=== PATIENT | male | born 1955 | race Caucasian/White ===

== ENCOUNTER → 2020-04-02 | Day surgery (SDC) | payer MEDICARE, OTHER ==
[2020-03-29 10:10] LABS: BASOPHILS % 0.6 % (0.0-1.0); EOSINOPHILS # (AUTO) 0.1 (0.0-0.4); EOSINOPHILS % 1.6 % (0.0-6.0); HEMATOCRIT 44.5 % (38.2-49.6); HEMOGLOBIN 15.2 g/dL (14.0-18.0); LYMPHOCYTES # (AUTO) 1.5 (1.0-3.2); LYMPHOCYTES % 22.3 % (18.0-39.1); MEAN CORPUSCULAR HEMOGLOBIN 31.9 pg (28-32); MEAN CORPUSCULAR HGB CONC 34.2 g/dL (31-35); MEAN CORPUSCULAR VOLUME 93.5 fL (81-99); MONOCYTES # (AUTO) 0.7 (0.2-0.8); MONOCYTES % 10.7 % (4.4-11.3); NEUTROPHILS # (AUTO) 4.3 (2.1-6.9); NEUTROPHILS % 64.4 % (38.7-80.0); PLATELET COUNT 170 x10e3/uL (140-360); RED BLOOD COUNT 4.76 x10e6/uL (4.3-5.7); RED CELL DISTRIBUTION WIDTH 13.1 % (11.7-14.4)
--- NOTE | 2020-03-29 10:39 | Diagnostic Imaging Report ---
EXAMINATION: CHEST 2 VIEWS INDICATION: Preop. Chest pain ^[id number] ^[id number] ^PRE-OP COMPARISON: None FINDINGS: TUBES and LINES: None. LUNGS: Lungs are well inflated. Lungs are clear. There is no evidence of pneumonia or pulmonary edema. PLEURA: No pleural effusion or pneumothorax. HEART AND MEDIASTINUM: The cardiomediastinal silhouette is unremarkable. BONES AND SOFT TISSUES: No acute osseous lesion. Soft tissues are unremarkable. UPPER ABDOMEN: No free air under the diaphragm. IMPRESSION: No acute thoracic abnormality. Signed by: Dr. Mason Shaffer M.D. on 03/29/2020 10:36 AM
[~2020-04-02] MED LIST: ACETAMINOPHEN 1000 MG/100 ML 100 ML IV ONE; BUPIVACAINE 0.25% 30ML SDV INJ ONE; CEFAZOLIN SOD 1 GM/NS 50ML 100 ML IV ONE; DEXAMETHASONE SOD PHOS INJ 4 MG/ML VIAL ONE; FENTANYL CITRATE/PF 100MCG/2 ML INJ ONE; KETOROLAC TROMETHAMINE 30 MG/ML VIAL ONE; LIDOCAINE HCL 2% JELLY 5 ML TUBE ONE; LIDOCAINE HCL 2% LOCAL INJ 5 ML SDV VIAL INJ ONE; MIDAZOLAM HCL 2 MG/2 ML VIAL ONE; ONDANSETRON HCL INJ 2MG/ML 2ML 2 MG/ML VIAL ONE; PROPOFOL IV EMULSION 10 MG/ML 20 ML VIAL ONE; SEVOFLURANE INHAL SOLN 250 ML PEN BTL ONE; TYLENOL325 M2 PO
[2020-04-02 11:25] VITALS: BP 143/92
--- NOTE | 2020-04-02 12:54 | Operative Report ---
DATE OF PROCEDURE: 04/02/2020 SURGEON: Jun Victor MD PREOPERATIVE DIAGNOSIS: Right inguinal hernia. POSTOPERATIVE DIAGNOSIS: Right inguinal hernia. PREOPERATIVE INDICATION: Treat disease, prevent hernia-related complications. PROCEDURES: Open repair of right inguinal hernia (CPT 64781). ANESTHESIA: General. SENIOR COBOL DEVELOPER: Arcadio Denise, surgical 1st events assistant (needed due to complexity of case). FLUIDS: As per anesthesia. EBL: 10 mL. DRAINS: None. COMPLICATIONS: None. SPECIMENS: Omentum. GRAFTS: Medium-sized Bard mesh PerFix plug polypropylene mesh. FINDINGS: Right-sided indirect and direct inguinal hernia. PROCEDURE IN DETAIL: The patient was brought to the operating room, and was intubated under general endotracheal anesthesia. He was sterilely prepped and draped in the usual fashion. A preprocedure pause was performed identifying the patient, use of perioperative antibiotics, intended procedure, and staff surgeon. Of note, a Ruff catheter was placed in order to decompress the bladder. A right-sided iliac fossa incision was made along the length of the skin lines. Dissection was carried through the subcutaneous tissues and a superficial epigastric vessel was identified and ligated in continuity with 3-0 silk suture. We then were able to expose the external oblique aponeurosis. The aponeurosis was cut along the length of its fibers being careful not to injure any neurovascular structures below. I identified ilioinguinal nerve and ligated this with silk suture as this was in the course of our dissection. I then encircled the cord structures with a Sania drain. We identified and dissected out an indirect inguinal hernia, which was consistent with a large portion of omentum. We then reduced it down to the level internal ring and excised part of this and ligated it with silk suture. I then placed a mesh plug through the internal ring and sutured it to the conjoint tendon medially and the shelving edge of the inguinal ligament laterally. Next, I had identified a direct space defect and reduced this. I 1st affixed the defect using 2-0 silk suture via the Bassini repair by approximating the shelving edge of the inguinal ligament as well as the conjoined tendon. We placed a single stitch that way and it helped reduce the defect. Next, I placed a patch over the inguinal floor to cover the direct space as well using the polypropylene patch. It was 1st sutured to the periosteum of the pubic tubercle and then it was sutured along the length of the conjoined tendon as well as the shelving edge of the inguinal ligament using 2-0 Prolene sutures. We then verified hemostasis and irrigated the wound. I closed the external oblique aponeurosis with 3-0 Vicryl suture in a continuous fashion. We closed the Haydee's fascia with an interrupted 3-0 Vicryl suture. The skin was closed with 4-0 Monocryl suture in a subcuticular fashion. Dermabond dressings were applied. 0.25% bupivacaine was used at the incision sites for local anesthesia. The patient tolerated the procedure well. Type of wound was type 1, clean. All surgical sponge, instrument counts were correct. MD DELLA Fatima/MODL /[id number]
== END | disposition home or self-care (01) ==
LOC: OR 06:24
PROVIDERS: ATTEND Surgery
DX: K40.90 Unilateral inguinal hernia, without obstruction or gangrene, not specified as recurrent (principal); K21.9 Gastro-esophageal reflux disease without esophagitis; R06.02 Shortness of breath; Z01.810 Encounter for preprocedural cardiovascular examination; Z01.812 Encounter for preprocedural laboratory examination; Z01.818 Encounter for other preprocedural examination; Z11.59 Encounter for screening for other viral diseases; Z68.30 Body mass index [BMI] 30.0-30.9, adult
CPT/HCPCS: 36415; 49505; 71046; 85025; 93005; C1781; J0131; J0690; J1100; J1885; J2001 ×2; J2250; J2405; J2704; J3010; U0002